=== PATIENT | female | born 1950 | race Caucasian/White ===

== ENCOUNTER → 2019-12-27 11:12 | Outpatient (BNVA) | payer MEDICARE, MEDICAID, SELFPAY | PROVIDERS: Visit Provider Internal Medicine | DX: I73.9 Peripheral vascular disease, unspecified (principal); Z51.81 Encounter for therapeutic drug level monitoring; Z79.01 Long term (current) use of anticoagulants | CPT/HCPCS: 85610 ==

== ENCOUNTER → 2020-01-24 11:32 | Outpatient (BNVA) | payer MEDICARE, MEDICAID, SELFPAY | PROVIDERS: Visit Provider Internal Medicine | DX: I73.9 Peripheral vascular disease, unspecified (principal); Z51.81 Encounter for therapeutic drug level monitoring; Z79.01 Long term (current) use of anticoagulants | CPT/HCPCS: 85610; 99211 ==

== ENCOUNTER → 2020-02-21 10:58 | Outpatient (BNVA) | payer MEDICARE, MEDICAID, SELFPAY | PROVIDERS: Visit Provider Internal Medicine | DX: I73.9 Peripheral vascular disease, unspecified (principal); Z51.81 Encounter for therapeutic drug level monitoring; Z79.01 Long term (current) use of anticoagulants | CPT/HCPCS: 85610; 99211 ==

== ENCOUNTER 2020-02-22 16:43 | Outpatient (REF) | payer MEDICARE, MEDICAID, SELFPAY | END 2020-02-22 16:44 | disposition home or self-care (01) | LOC: HO.LAB 16:43 | PROVIDERS: Visit Provider Internal Medicine | DX: Z20.828 Contact with and (suspected) exposure to other viral communicable diseases (principal) | CPT/HCPCS: C9803; U0003 ==

== ENCOUNTER → 2020-03-06 11:07 | Outpatient (BNVA) | payer MEDICARE, MEDICAID, SELFPAY | PROVIDERS: Visit Provider Internal Medicine | DX: I73.9 Peripheral vascular disease, unspecified (principal); Z79.01 Long term (current) use of anticoagulants; Z51.81 Encounter for therapeutic drug level monitoring | CPT/HCPCS: 85610; 99211 ==

== ENCOUNTER → 2020-03-29 14:55 | Outpatient (BNVA) | payer MEDICARE, MEDICAID, SELFPAY | PROVIDERS: Visit Provider Internal Medicine | DX: I73.9 Peripheral vascular disease, unspecified (principal); Z51.81 Encounter for therapeutic drug level monitoring; Z79.01 Long term (current) use of anticoagulants | CPT/HCPCS: 85610; 99211 ==

== ENCOUNTER → 2020-04-24 11:26 | Outpatient (BNVA) | payer MEDICARE, MEDICAID, SELFPAY | PROVIDERS: Visit Provider Internal Medicine | DX: I73.9 Peripheral vascular disease, unspecified (principal); Z51.81 Encounter for therapeutic drug level monitoring; Z79.01 Long term (current) use of anticoagulants | CPT/HCPCS: 85610; 99211 ==

== ENCOUNTER 2023-10-22 07:56 | Outpatient (AMB) | payer MEDICARE, MEDICAID, SELFPAY ==
--- NOTE | 2023-10-22 08:01 | MHC.OFFVIS ---
Vital Signs 10/22/23 08:04 Height 5 ft 2 in Weight 185 lb BMI 33.8 BP 119/65 Blood Pressure Location Lt brachial Position Sitting Respiration 16 Pulse 74 Pulse Source Pulse Oximeter Pulse Oximetry (%) 95 Oxygen Delivery Method Room Air Intake Visit Reasons: Diffuse Arthralgia Allergies adhesive tape [Adhesive Tape] Allergy (Unknown, Verified 10/22/23 08:06) REDNESS/RASH TEGRETOL Allergy (Unknown, Uncoded 10/22/23 08:06) Unknown Medication List - Last Reconciled 10/22/23 by Aura Zarco LPN aspirin (Adult Aspirin Regimen) 81 mg PO DAILY cholecalciferol (vitamin D3) (Vitamin D3) 25 mcg PO DAILY cholecalciferol (vitamin D3) (Vitamin D3) 25 mcg PO DAILY gabapentin mg PO glucosamine sulfate 1,000 mg PO BID isosorbide mononitrate ER 30 mg PO DAILY lisinopril 5 mg PO DAILY nitroglycerin 0.4 mg sublingual Q5M PRN omeprazole 20 mg PO BID oxycodone 5 mg PO QID PRN rosuvastatin 40 mg PO DAILY sertraline 50 mg PO DAILY warfarin 5 mg See Protocol PO DAILY warfarin 2.5 mg See Protocol PO DAILY HPI HPI Diffuse Arthralgia: Details: 72-year-old female who presents today to the office for evaluation of diffuse arthralgia. She reports bilateral ankle and knee pain. The pain in her ankles and knees is described as an aching and burning sensation. It is rated at 10/10 in intensity, and her lower back is 9/10 in intensity. The pain falls in a variable pattern throughout the day. Her ankle pain is worse with lying down last night on bed. She has peripheral neuropathy. She has osteoarthritis in her ankles. She also complains of pain in her lower back and the right shoulder. She has arthritis in her back. She has sciatica-like pain in her lower back region. She has done physical therapy earlier this year. She has rotator cuff issues. She has bilateral shoulder and arm pain. She has difficulty lifting heavy items. She takes two tablets of Tylenol and half a tablet of oxycodone, and the other half as needed. She states that her oxycodone is prescribed by Dr. Solis, a primary care physician. She is able to take care of herself, but her activities are limited. Her sleep is affected by the pain. She has been retired. She had two UT s in the past and had cardiac stent placements, during which she had more than 1 episode of cardiac arrest requiring resuscitation. [facility] Medical History (Updated 10/22/23 @ 09:14 by Kwan Bojorquez MD) Screening for viral disease PTSD (post-traumatic stress disorder) Polyarthritis PAD (peripheral artery disease) Osteoarthritis Old UT (myocardial infarction) Obesity, Class I, BMI 30-34.9 Nicotine dependence Low HDL (under 40) Hypervitaminosis A Hyperparathyroidism Hypercoagulable state Hypercholesterolemia History of pulmonary embolism History of DVT in adulthood History of COVID-19 GERD (gastroesophageal reflux disease) Fibromyalgia Family history of breast cancer Estrogen deficiency Elevated ferritin level Elevated alkaline phosphatase level Diarrhea Coronary artery disease Claudication Chronic low back pain Chronic kidney disease, stage 3a Carrier of hemochromatosis HFE gene mutation Carotid artery stenosis Black tarry stools Anxiety disorder Angina pectoris Alcoholism in remission Surgical History (Updated 10/22/23 @ 06:20 by Adal Olivo) History of AAA (abdominal aortic aneurysm) repair Review of Systems Const All systems reviewed & are unremarkable except as noted in HPI and below Physical Exam Vital Signs: Last Vital Signs Pulse 74 10/22/23 08:04 Resp 16 10/22/23 08:04 BP 119/65 10/22/23 08:04 Pulse Ox 95 10/22/23 08:04 Oxygen Delivery Method Room Air 10/22/23 08:04 BMI result Body Mass Index 33.8 General: Appears afebrile. Alert and oriented. Mood and affect appropriate. Follows and participates in conversation appropriately. Respiratory effort is unlabored. Able to transition from sit to stand unassisted. Ambulates with bilaterally normal heel strike and toe off. She has mild deformity of the left leg on inspection. There is tenderness to palpation in the medial aspect of the left knee. No significant tenderness to palpation around the ankles. Mild tenderness to palpation around the right knee. Results Reviewed Results Reviewed: Shoulder MRI 2017 Clinical History: Pain and swelling Findings: There is a mild degree of degenerative change of the acromioclavicular joint. Capsular hypertrophy and spurring is noted. Thickened coracoacromial ligament. Narrowed acromiohumeral interval. Full-thickness tear at the confluence of the posterior supraspinatus and anterior infraspinatus tendons. Some articular sided fibers are retracted approximately 3.5 cm to the level of the glenoid labrum. Other fibers are retracted approximately 1.5 cm. tear measures approximately 1 cm AP. Minimal fatty atrophy of the supraspinatus and infraspinatus muscle bellies. The teres minor tendon is intact. Mild fatty atrophy of the teres minor muscle belly. Partial articular surface tear within distal subscapularis tendon fibers on image 14 of series 4. The partial tear may be high-grade and may have a small full-thickness perforating component. There is subscapularis tendinopathy. The long head of the biceps tendon is torn and retracted . Impression: Full-thickness tear at the confluence of the posterior supraspinatus and anterior infraspinatus tendons. Partial articular surface tear within distal subscapularis tendon fibers. Tear may be high-grade and may have a small full-thickness perforating component Subscapularis tendinopathy. Long head of the biceps tendon is torn and retracted. Mild fatty atrophy of the teres minor muscle belly can be seen with quadrilateral space syndrome. Assessment & Plan Assessment & Plan (1) Lumbosacral spondylosis with radiculopathy: Code(s): M47.27 - Other spondylosis with radiculopathy, lumbosacral region Category: Medical (2) Polyarthralgia: Code(s): M25.50 - Pain in unspecified joint Category: Medical Plan Provided a prescription for physical therapy for her back pain secondary to likely lumbar spondylosis and leg pain likely secondary to lumbar radiculitis. Advised to continue doing gentle exercises at home. We can also consider an MRI scan of the lumbar spine for further evaluation in the future. She is not an ideal candidate for surgical intervention due to cardiac issues.? For her polyarticular symptoms, I discussed trying acupuncture and dietary changes, including turmeric supplements, tyson, and garlic. I also recommended trying CBD gummies, TENS units, massage, soaking baths and a regular sleep routine. We can consider cortisone injections for episodic flares as needed. Scribed for Dr. Bojorquez by Adal Olivo, medical coordinator pesticide use, on 10/22/2023. I, Dr. Bojorquez, have personally reviewed and agree with the information entered by the scribe. Orders: Orders PT Evaluation and Treatment Today M47.27 - Other spondylosis with radiculopathy, lumbosacral region Coding Level of Care Code New Pt Level 4 (76249) Diagnoses Lumbosacral spondylosis with radiculopathy M47.27 Polyarthralgia M25.50
[2023-10-22 08:04] VITALS: BP 119/65; PULSE 74; RESP 16; O2SAT 95; BMI 33.8
== END 2023-10-22 08:44 | disposition home or self-care (01) ==
PROVIDERS: PCP Internal Medicine; Referring Provider Internal Medicine; Visit Provider Internal Medicine
DX: M47.27 Other spondylosis with radiculopathy, lumbosacral region (principal); M25.50 Pain in unspecified joint
CPT/HCPCS: 99203

== ENCOUNTER → 2023-10-22 07:56 | Outpatient (BNVA) | payer MEDICARE, MEDICAID, SELFPAY | PROVIDERS: PCP Internal Medicine; Referring Provider Internal Medicine; Visit Provider Internal Medicine | DX: M47.27 Other spondylosis with radiculopathy, lumbosacral region (principal); M25.50 Pain in unspecified joint; Z79.891 Long term (current) use of opiate analgesic | CPT/HCPCS: 99202 ==